=== PATIENT | male | born 2000 | race Caucasian/White ===

== ENCOUNTER → 2022-09-25 21:03 | Outpatient (CLI) | payer BC, SELFPAY ==
[2022-09-25 17:12] LABS: Basophils # 0.1 K/mm3 (0-0.2); Basophils % 1.4 % (0.1-2.0); Eosinophils # 0.1 K/mm3 (0.0-0.4); Eosinophils % 2.3 % (0.1-12.0); Hematocrit 46.9 % (42.0-52.0); Hemoglobin 16.2 g/dL (14.1-18.0); Lymphocytes # 1.8 K/mm3 (0.7-4.5); Lymphocytes % 32.7 % (10-50); Mean Corpuscular HGB Conc 34.6 g/dL (31.8-35.4); Mean Corpuscular Hemoglobin 30.9 pg (27.0-31.2); Mean Corpuscular Volume 89.4 fl (80-94); Mean Platelet Volume 8.8 fl (7.4-10.4); Monocytes # 0.4 K/mm3 (0.1-1.0); Monocytes % 7.6 % (1.7-9.3); Neutrophils # 3.1 K/mm3 (1.8-7.8); Neutrophils % 55.9 % (37.0-80.0); Platelet Count 209 K/mm3 (142-424); Red Blood Count 5.24 M/mm3 (4.60-6.20); Red Cell Distribution Width 12.1 % (11.5-17.5); White Blood Count 5.6 K/mm3 (4.8-10.8)
[2022-09-25 17:43] LABS: Erythrocyte Sedimentation Rate 3 mm/hr (0-15)
[2022-09-25 17:46] LABS: Alanine Aminotransferase 21 U/L (12-78); Albumin Level 4.8 g/dl (3.5-5.0); Albumin/Globulin Ratio 1.8 (1.1-1.8); Alkaline Phosphatase 83 U/L (38-126); Aspartate Amino Transferase 29 U/L (17-59); Bilirubin,Total 1.7 mg/dl (0.2-1.3); Blood Urea Nitrogen 16 mg/dl (9-20); Carbon Dioxide 31 mmol/L (22.0-30.0); Chloride 100 mmol/L (98-107); Estimated Glomerular Filt Rate 76 ml/min (>60); GFR (African American) 92 ML/MIN (>60); Globulin 2.7 g/dL (1.3-3.2); Glucose 58 mg/dl (74-100); Sodium 136 mmol/L (136-145); Total Protein,Serum 7.5 g/dl (6.3-8.2)
[2022-09-25 17:54] LABS: 25-OH Vitamin D, Total 35.8 ng/mL (30-100)
[2022-09-25 18:05] LABS: T4 (Thyroxine) 7.6 ug/dl (5.53-11.0)
[2022-09-25 18:18] LABS: Thyroid Stimulating Hormone 6.16 uIU/mL (0.465-4.68)
[2022-09-25 18:59] LABS: Anion Gap 9.3 mEq/L (5-15); Potassium 4.3 mmoL/L (3.5-5.1)
[2022-09-27 08:52] LABS: RA Latex Turbid. <10.0 IU/mL (<14.0)
[2022-09-28 02:37] LABS: Antinuclear Antibodies (ANA) Positive
== END ==
PROVIDERS: PCP Family Medicine; Visit Provider Family Medicine
DX: R53.83 Other fatigue (principal)
CPT/HCPCS: 80053; 82306; 84436; 84443; 85025; 85651; 86038; 86431

== ENCOUNTER → 2022-10-12 10:14 | Outpatient (CLI) | payer BC, SELFPAY ==
[2022-10-12 11:50] LABS: Free T4 (Free Thyroxine) 1.13 ng/dl (0.78-2.19)
[2022-10-13 08:00] LABS: Triiodothyronine (T3) Free 3.5 pg/mL (2.0-4.4)
[2022-10-14 15:49] LABS: Anti-Centromere B Antibodies <0.2 AI (0.0-0.9); Anti-DNA (DS) Ab Qn <1 IU/mL (0-9); Anti-Jo-1 <0.2 AI (0.0-0.9); Anti-Smith Antibody <0.2 AI (0.0-0.9); Antichromatin Antibodies <0.2 AI (0.0-0.9); Antiscleroderma-70 Antibodies <0.2 AI (0.0-0.9); RNP Antibodies 1.1 AI (0.0-0.9); Sjogren's Anti-SS-A <0.2 AI (0.0-0.9); Sjogren's Anti-SS-B <0.2 AI (0.0-0.9)
== END ==
PROVIDERS: PCP Family Medicine; Visit Provider Family Medicine
DX: R76.8 Other specified abnormal immunological findings in serum (principal); R79.89 Other specified abnormal findings of blood chemistry
CPT/HCPCS: 36415; 84439; 84481; 86225; 86235

== ENCOUNTER → 2023-01-27 23:19 | Outpatient (CLI) | payer BC, SELFPAY ==
[2023-01-27 18:40] LABS: Thyroid Stimulating Hormone 2.59 uIU/mL (0.465-4.68)
== END ==
PROVIDERS: PCP Family Medicine; Visit Provider Family Medicine
DX: E03.9 Hypothyroidism, unspecified (principal)
CPT/HCPCS: 84443

== ENCOUNTER 2023-09-22 16:47 | Outpatient (CLI) | payer BC, SELFPAY ==
[2023-09-22 17:11] LABS: Free T4 (Free Thyroxine) 1.35 ng/dl (0.78-2.19); T4 (Thyroxine) 9.3 ug/dl (5.53-11.0)
[2023-09-22 17:24] LABS: Thyroid Stimulating Hormone 4.14 uIU/mL (0.465-4.68)
[2023-09-23 09:18] LABS: Triiodothyronine (T3) Free 3.5 pg/mL (2.0-4.4)
== END 2023-09-22 23:59 ==
LOC: LAB.DROPOF 16:48
PROVIDERS: PCP Family Medicine; Visit Provider Family Medicine
DX: E03.9 Hypothyroidism, unspecified (principal)
CPT/HCPCS: 84436; 84439; 84443; 84481

== ENCOUNTER 2024-02-02 10:54 | Outpatient (CLI) | payer BC, SELFPAY ==
[2024-02-02 18:25] LABS: Thyroid Stimulating Hormone 5.15 uIU/mL (0.465-4.68)
== END 2024-02-02 23:59 | disposition home or self-care (01) ==
LOC: LAB.DROPOF 02-03 10:56
PROVIDERS: PCP Family Medicine; Visit Provider Family Medicine
DX: E03.9 Hypothyroidism, unspecified (principal)
CPT/HCPCS: 84443

== ENCOUNTER 2025-04-22 08:55 | Outpatient (CLI) | payer BC, SELFPAY ==
--- OUTSIDE RECORDS SUMMARY | 2024-10-23 17:30 | XMS_ITS ---
Author Organization [facility] Address [address] [facility] [address] [place] [address] Care Team Providers Care Lab Rep Name Role Phone Alex Johnson Primary Care Provider Migration, Provider Unavailable Unavailable REASON FOR VISIT Multum To Medispan Conversion Encounter Medications Medication SIG (Take, Route, Frequency, Duration) Notes Start Date End Date Status Levothyroxine Sodium 50 MCG 1 tab(s) ora lly once a day Active Encounters Encounter Location Date Provider Diagnosis [facility] [address] [place] [address] [facility] [address] [place] [id number] 10/23/2024 Provider Migration Plan Of Treatment No Information Progress Notes * Osman MOTTDOB:[birth year] (25 yo M)Acc No.[id number]:10/23/2024 Patient: Osman BARNES Provider: Swati iqbal Migration :2000 A ge:24 Y S ex:Male Date:10/23/2024 Address:[address] [id number] Pcp:Alex Johnson Subjective: * Chief Complaints: * 1 . Multum To Medispan Conversion Encounter. * Medical History: * Medications: T aking Levothyroxine Sodium 50 MCG Tablet 1 tab(s) orally once a day Objective: * Vitals: Assessment: Plan: * Treatment: * * Electronic signature of Prov ider Migration on 04/25/2025 at 09:01 AM EDT Sign off status: Pending * Provider: Swati iqbal Migration Date: 0 10/23/2024 Generated for Page triplett/Tyrel/Shannan on: 1 09:01 AM EDT
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
--- OUTSIDE RECORDS SUMMARY | 2025-02-25 08:51 | XMS_ITS | Encounter Summary ---
Author Organization [facility] Address [address] [place] [address] Care Team Providers Care Rn Night Name Role Phone Pcp, No Primary Care Provider Unavailabl e Encounter Details Date Type Department Care Team (Latest Contact Info) Description 02/25/2025 8:51 AM EDT - 02/25/2025 11:59 PM EDT Hospital Encounter [facility] X-Ray [address], [address] [place] [address] Pain of right thigh Discharge Disposition: Home or Self Care Social History Tobacco Use Types Packs/Day Years Used Date Smoking Tobacco: Never Smokeless Tobacco: Current Chew Comments:Chews occasionally PHQ-2 Answer Date Recorded Patient Health Questionnaire-2 Score 0 04/01/2022 Sex and Gender Information Value Date Recorded Sex Assigned at Not on file Legal Sex Male 7:06 PM EDT Gender Identity Not on file Sexual Orientation Not on file documented as of this encounter Medications at Time of Discharge ibuprofen 600 MG tablet Take 1 tablet (600 mg) by mouth every 6 (six) hours if needed for mild pain or moderate pain. 75 tablet 05/25/2024 levothyroxine (Synthroid, Levoxyl) 75 MCG tablet TAKE 1 TABLET BY MOUTH ONCE DAILY FOR THYROID levothyroxine (Synthroid, Levoxyl) 88 MCG tablet Take 1 tablet by mouth daily. 02/11/2025 methylPREDNISolo ne (Medrol Dospak) 4 MG tabletsIndicatio ns:Pain of right thigh Follow schedule on package instructions 21 tablet 02/25/2025 diclofenac (Voltaren) 75 MG EC tabletIndication s:Pain of right thigh Take 1 tablet by mouth 2 times a day. Do not crush, chew, or split. 60 tablet 02/25/2025 documented as of this encounter Plan of Treatment Not on file documented as of this encounter Procedures Procedure Name Priority Date/Time Associated Diagnosis Comments XR KNEE RIGHT 4+ VIEWS Routine 02/25/2025 9:11 AM EDT Pain of right thigh XR KNEE LEFT 4+ VIEWS Routine 02/25/2025 9:11 AM EDT Pain of right thigh XR FEMUR RIGHT 2+ VIEWS Routine 02/25/2025 9:11 AM EDT Pain of right thigh documented in this encounter Results * XR Knee Right 4+ Views (02/25/2025 [...] IMG XR PROCEDURES Final Result * XR Femur Right 2+ Views (02/25/2025 [...] encounter Visit Diagnoses Diagnosis Pain of right thigh documented in this encounter Additional Health Concerns Assessment Noted Time A fall risk assessment has been complete d for the patient 02/25/2025 8:45 AM EDT A Body Mass Index follow-up plan has been documented for the patient 02/26/2025 8:58 AM EDT documented as of this encounter Care Teams Rn Night Relationship Specialty Start Date End Date Pcp, Priya [address] [place] [address] PCP - General 06/11/21 documented as of this encounter
[2025-04-22 20:31] LABS: Hematocrit 45.1 % (42.0-52.0); Hemoglobin 16.1 g/dL (14.1-18.0); Immature Granulocytes % 0.2 %; Mean Corpuscular HGB Conc 35.7 g/dL (31.8-35.4); Mean Corpuscular Hemoglobin 30.7 pg (27.0-31.2); Mean Corpuscular Volume 86.1 fl (80-94); Nucleated Red Blood Cells % 0 %; Platelet Count 193 K/mm3 (142-424); Red Blood Count 5.24 M/mm3 (4.60-6.20); Red Cell Distribution Width-SD 34.2 fL; White Blood Count 5.3 K/mm3 (4.8-10.8)
[2025-04-22 21:29] LABS: Alanine Aminotransferase 24 U/L (12-78); Albumin Level 4.7 g/dl (3.5-5.0); Albumin/Globulin Ratio 1.9 (1.1-1.8); Alkaline Phosphatase 80 U/L (38-126); Anion Gap 17.3 mEq/L (5-15); Aspartate Amino Transferase 26 U/L (17-59); Bilirubin,Total 2.3 mg/dl (0.2-1.3); Blood Urea Nitrogen 13 mg/dl (9-20); Calcium 9.6 mg/dl (8.4-10.2); Carbon Dioxide 25 mmol/L (22.0-30.0); Chloride 101 mmol/L (98-107); Cholesterol 122 mg/dl (140-200); Creatinine,Serum 1.10 mg/dl (0.66-1.25); Estimated Glomerular Filt Rate 82 ml/min (>60); GFR (African American) 99 ML/MIN (>60); Globulin 2.5 g/dL (1.3-3.2); Glucose 77 mg/dl (74-100); HDL Cholesterol 44 mg/dl (40-60); Potassium 4.3 mmoL/L (3.5-5.1); Sodium 139 mmol/L (136-145); Total Protein,Serum 7.2 g/dl (6.3-8.2); Triglycerides 67 mg/dl (30-150)
[2025-04-22 22:01] LABS: Thyroid Stimulating Hormone 2.68 uIU/mL (0.465-4.68)
[2025-04-22 22:15] LABS: Hepatitis C Ab Qual. W/ RFX NEGATIVE (Negative)
[2025-04-24 08:11] LABS: Hepatitis B Surface Antigen Negative (Negative)
--- OUTSIDE RECORDS SUMMARY | 2025-04-25 09:01 | XMS_ITS | Patient Health Record ---
Author Organization [facility] Address [address] [facility] [address] [facility] [address] [place] [address] Care Team Providers Care Assistant Basketball Coach Name Role Phone Alex Johnson Primary Care Provider [phone] Migration, Provider Unavailable Unavailable Allergies No Known Allergies Reason For Referral No Information Medications Medication SIG (Take, Route, Frequency, Duration) Notes Start Date End Date Status Levothyroxine Sodium 50 MCG 1 tab(s) ora lly once a day Active Social History Tobacco Use: Social History Observation Description Date Details (start date - stop date) Never Smoker NA - NA Smoking: Question Answer Notes Are you a: nonsmoker Problems Problem Type SNOMED Code ICD Code Onset Dates Problem Status W/U Status Risk Notes Problem Otitis externa (9522525) EXTERNAL OTITIS (380.10) Active confirmed Encounters Encounter Location Date Provider Diagnosis [facility] [address] [place] [address] [place] [address] 10/23/2024 Provider Migration Plan Of Treatment Pending Test Test Name Order Date Rapid Strep 03/09/2007 N-CMP 03/17/2009 Future Test Test Name Order Date N-CMP 04/20/2009 Insurance Providers Payer Name Payer Address Payer Phone Subscriber Number Group Number Insured Name Patient Relationship to Insured Coverage Start Date Coverage End Date [employer] [address] [place] [address] [phone] [id number] Osman Alba Self - patient is the insured Medical (General) History Surgical History Surgery Date(Month/Year) [place] teeth extracted 12/12/2022
--- OUTSIDE RECORDS SUMMARY | 2025-04-25 09:01 | XMS_ITS | Encounter Summary ---
Author Organization [facility] Address [address] [place] [address] Care Team Providers Care Pharmacy Specialist Name Role Phone Pcp, Priya Primary Care Provider Unavailabl e Encounter Details Date Type Department Care Team (Latest Contact Info) Description 02/25/2025 Travel Social History Tobacco Use Types Packs/Day Years Used Date Smoking Tobacco: Never Smokeless Tobacco: Current Chew Comments:Chews occasionally PHQ-2 Answer Date Recorded Patient Health Questionnaire-2 Score 0 04/01/2022 Sex and Gender Information Value Date Recorded Sex Assigned at Not on file Legal Sex Male 7:06 PM EDT Gender Identity Not on file Sexual Orientation Not on file documented as of this encounter Plan of Treatment Not on file documented as of this encounter Visit Diagnoses Not on filedocumented in this encounter Additional Health Concerns Assessment Noted Time A fall risk assessment has been complete d for the patient 02/25/2025 8:45 AM EDT A Body Mass Index follow-up plan has been documented for the patient 02/26/2025 8:58 AM EDT documented as of this encounter Care Teams Pharmacy Specialist Relationship Specialty Start Date End Date P[place], [place] [address] PCP - General 06/11/21 documented as of this encounter
--- OUTSIDE RECORDS SUMMARY | 2025-04-25 09:01 | XMS_ITS | Clinical Summary ---
Author Organization [facility] Address [address] [place] [address] Care Team Providers Care Communication Center Coordinator Name Role Phone Pcp, No Primary Care Provider Unavailabl e Allergies No known active allergies Medications levothyroxine (Synthroid, Levoxyl) 75 MCG tablet TAKE 1 TABLET BY MOUTH ONCE DAILY FOR THYROID Active ibuprofen 600 MG tablet Take 1 tablet (600 mg) by mouth every 6 (six) hours if needed for mild pain or moderate pain. 75 tablet 4 Active levothyroxine (Synthroid, Levoxyl) 88 MCG tablet Take 1 tablet by mouth daily. 5 Active methylPREDNISo lone (Medrol Dospak) 4 MG tabletsIndicat ions:Pain of right thigh Follow schedule on package instructions 21 tablet 5 Active diclofenac (Voltaren) 75 MG EC tabletIndicati ons:Pain of right thigh Take 1 tablet by mouth 2 times a day. Do not crush, chew, or split. 60 tablet 5 03/27/20 25 Active Problems Problem Noted Date Diagnosed Date Pain of left clavicle 05/18/2024 Closed displaced fracture of shaft of left clavi garcía 05/18/2024 Acquired defect of articular cartilage 2 Injury of right knee 04/02/2022 Resolved Problems Problem Noted Date Diagnosed Date Resolved Date Acute pain of right knee 04/02/2022 Encounters Date Type Department Care Team Description 02/25/2025 8:51 AM EDT - 02/25/2025 11:59 PM EDT Hospital Encounter [facility] X-Ray [address], [address] [place] [address] Pain of right thigh Discharge Disposition: Home or Self Care 02/25/2025 8:[address] [facility] Orthopaedic Surgery & Sports Medicine [address], [address] [place] [address] Leonidas Graham MD Pain of right thigh (Primary Dx) 02/25/2025 Travel 02/23/[address] [facility]opa[facility] Surgery [facility] Sports Medicine [address], [address] [place] [address] Marlene Graham from Last 3 Months Family History Medical History Relation Name Comments Conversions - Other Father Healthy adult Conversions - Other Mother Healthy adult Relation Name Status Comments Father Mother Social History Tobacco Use Types Packs/Day Years Used Date Smoking Tobacco: Never Smokeless Tobacco: Current Chew Tobacco Cessation:Ready to Q uit: Not Asked; Counseling Given: Not Answered Comments:Chews occasionally PHQ-2 Answer Date Recorded Patient Health Questionnaire-2 Score 0 04/01/2022 Sex and Gender Information Value Date Recorded Sex Assigned at Not on file Legal Sex Male 7:06 PM EDT Gender Identity Not on file Sexual Orientation Not on file Last Filed Vital Signs Vital Sign Reading Time Taken Comments Blood Pressure 126/75 02/25/2025 8:44 AM EDT Pulse 68 04/02/2022 10:03 AM EDT Temperature - - Respiratory Rate 20 04/02/2022 10:03 AM EDT Oxygen Saturation 98% 04/02/2022 10:03 AM EDT Inhaled Oxygen Concentration - - Weight 83 kg (183 lb) 02/25/2025 8:44 AM EDT Height 180.3 cm (5' 11 ) 02/25/2025 8:44 AM EDT Body Mass Index 25.52 02/25/2025 8:44 AM EDT Plan of Treatment Health Maintenance Due Date Last Done Comments [facility]-HIV Screening 2000 [facility]-Hepatitis C Screening 2000 [facility]-/Child/Adol SDOH Screenings 2000 [id number] Vaccine (#1) 2005 HPV Vaccines (1 - Male 3-dose series) 2015 [facility]-IPV Vaccines (2 of 3 - 4-dose series) 07/10/2016 06/12/2016 [facility]- SDOH Screenings 2018 [facility]-Adult SDOH Screenings 2018 [facility]-Depression Screening 04/01/2023 04/01/2022 [facility]-DTaP,Tdap,and Td Vaccines (2 - Td or Tdap) 03/09/2025 03/09/2015 [facility]-Influenza Vaccine (#1) 2025 [facility]-Zoster Vaccines (1 of 2) 2050 07/27/2015, 03/09/2015 [facility]-Hepatitis B Vaccines Completed 016, 03/09/2015, 2000 [facility]-Varicella Vaccines Completed 07/27/2015, 2014 [facility]-Hepatitis A Vaccines Completed 06/12/2016, 09/20 [facility]-Obesity Intervention Completed 025, 08/31/2024, 07/27/2024, Additional history exists [facility]-HIB Vaccines Aged Out No longer e ligible based on patient's age to complete this topic [facility]-Pneumococcal Vaccine: Pediatrics (0 to 5 Years) and At-Risk Patients (6 to 49 Years) Aged Out No longer eligible based on patient's age to complete this topic [facility]-Rotavirus Vaccines Aged Out No lo nger eligible based on patient's age to complete this topic Procedures Procedure Name Priority Date/Time Associated Diagnosis Comments XR KNEE RIGHT 4+ VIEWS Routine 02/25/2025 9:11 AM EDT Pain of right thigh XR KNEE LEFT 4+ VIEWS Routine 02/25/2025 9:11 AM EDT Pain of right thigh XR FEMUR RIGHT 2+ VIEWS Routine 02/25/2025 9:11 AM EDT Pain of right thigh from Last 3 Months Results * XR Knee Right 4+ Views [...] 02/25/2025 9:21 AM Final report signed by Demaroc Stringer MD on 02/25/2025 9:23 AM Leonidas Graham MD IM XR PROCEDURES Final Result * XR Femur [...] Graham MD IMG XR PROCEDURES Final Result from Last 3 Months Insurance [facility] [place] [id number] Care Teams Communication Center Coordinator Relationship Specialty Start Date End Date Pcp, Priya [address] [place] [address] PCP - General 06/11/21
== END 2025-04-22 23:59 ==
LOC: LAB.DROPOF 04-25 08:55
PROVIDERS: PCP Nurse Practitioner Family; Visit Provider Nurse Practitioner Family
DX: E03.9 Hypothyroidism, unspecified (principal); Z11.4 Encounter for screening for human immunodeficiency virus [HIV]; Z11.59 Encounter for screening for other viral diseases
CPT/HCPCS: 80053; 80061; 84443; 85025; 86803; 87340; 87389